=== PATIENT | male | born 1950 | race Caucasian/White ===

== ENCOUNTER → 2017-10-27 | Outpatient (CLI) | payer MEDICARE | END | disposition home or self-care (01) | LOC: RAH 12:39 | PROVIDERS: ATTEND Family Medicine | DX: K57.30 Diverticulosis of large intestine without perforation or abscess without bleeding (principal) | CPT/HCPCS: 74176 ==

== ENCOUNTER → 2018-08-21 | Outpatient (CLI) | payer MEDICARE, OTHER | END | disposition home or self-care (01) | LOC: RAH 13:17 | PROVIDERS: ATTEND Family Medicine | DX: R04.2 Hemoptysis (principal); M47.815 Spondylosis without myelopathy or radiculopathy, thoracolumbar region | CPT/HCPCS: 71250 ==

== ENCOUNTER → 2018-08-28 | Outpatient (CLI) | payer OTHER | END | disposition home or self-care (01) | LOC: RAH 10:25 | PROVIDERS: ATTEND Internal Medicine Gastroenterology | DX: N28.1 Cyst of kidney, acquired (principal); I70.0 Atherosclerosis of aorta | CPT/HCPCS: 76700 ==

== ENCOUNTER → 2019-04-16 | Outpatient (CLI) | payer OTHER ==
[~2019-04-16] MED LIST: IOHEXOL-350 75 ML VIAL IV ONE
== END | disposition home or self-care (01) ==
LOC: RAH 09:46
PROVIDERS: ATTEND Family Medicine
DX: R79.1 Abnormal coagulation profile (principal)
CPT/HCPCS: 71275; Q9967

== ENCOUNTER → 2019-05-11 | Outpatient (CLI) | payer OTHER | END | disposition home or self-care (01) | LOC: SHCH 15:31 | PROVIDERS: ATTEND Internal Medicine Cardiovascular Disease | DX: I35.0 Nonrheumatic aortic (valve) stenosis (principal); R00.2 Palpitations | CPT/HCPCS: 93306 ==

== ENCOUNTER → 2019-05-21 | Outpatient (CLI) | payer OTHER ==
[~2019-05-21] VITALS: Ht 177.8 cm; Wt 75.7 kg
[~2019-05-21] MED LIST changes: -IOHEXOL-350 75 ML VIAL IV ONE; +REGADENOSON 0.4 MG/5 ML PF SYG IVP SCH
== END | disposition home or self-care (01) ==
LOC: SHCH 08:52
PROVIDERS: ATTEND Internal Medicine Cardiovascular Disease
DX: R07.9 Chest pain, unspecified (principal); R00.1 Bradycardia, unspecified; R06.00 Dyspnea, unspecified
CPT/HCPCS: 78452; 93017; 96374; A9500 ×2; J2785

== ENCOUNTER 2019-06-13 09:05 | Observation (INO) | payer OTHER ==
[2019-06-11 09:15] LABS: BASOPHILS % (AUTO) 0.8 % (0.0-5.0); EOSINOPHILS % (AUTO) 4.2 % (0.0-8.0); HEMATOCRIT 42.9 % (42-54); LYMPHOCYTES % (AUTO) 16.8 % (21.0-51.0); MEAN CORPUSCULAR HEMOGLOBIN 29.9 pg (27.0-33.0); MEAN CORPUSCULAR HGB CONC 33.6 g/dL (32.0-36.0); MONOCYTES % (AUTO) 7.6 % (3.0-13.0); NEUTROPHILS % (AUTO) 70.1 % (40.0-77.0); PLATELET COUNT (AUTO) 369 K/uL (130-400); RED BLOOD CELL COUNT(AUTO) 4.82 MIL/uL (4.50-6.20); RED CELL DISTRIBUTION WIDTH 12.8 % (11.0-15.5); WHITE BLOOD COUNT (AUTO) 10.6 K/uL (4.8-10.8)
[2019-06-11 09:22] LABS: CREATININE 0.9 mg/dL (0.5-1.5)
[2019-06-11 09:25] LABS: INR 1.03 (0.85-1.15); PROTHROMBIN TIME 10.8 SEC (9.6-11.6)
[2019-06-11 09:29] VITALS: BP 134/66
--- NOTE | 2019-06-11 09:51 | NUR ---
CALLED [facility] SPOKE TO VALENCIA AND REPORTED THAT PT HAS NOT STARTED ELIQUIS SINCE PERSCRIBED. VALENCIA STATED SHE WILL MAKE A NOTE.
[2019-06-11 11:08] LABS: APPEARANCE,URINE Clear (CLEAR); BILIRUBIN,URINE Negative (NEGATIVE); COLOR,URINE Yellow (YELLOW); GLUCOSE, URINE (UA) Negative (NEGATIVE); KETONES,URINE Negative (NEGATIVE); LEUKOCYTE ESTERASE ,URINE Negative (NEGATIVE); NITRATE,URINE Negative (NEGATIVE); OCCULT BLOOD,URINE Trace (NEGATIVE); PROTEIN,URINE Negative (NEGATIVE); UROBILINOGEN,URINE 0.2 mg/dL (0.2-1.0)
[2019-06-11 11:27] LABS: BACTERIA,URINE Rare /HPF (None Seen); RBC,URINE 0-1 /HPF (0-1); SQUAMOUS EPITHELIAL CELL,UR Rare /HPF (0-2); WBC,URINE 0-1 /HPF (0-1)
--- NOTE | 2019-06-12 10:12 | NUR ---
Spoke to EVELIA Santiago and advised him that patient has not yet started Eliquis, okay to proceed. I also advised Carson Jackson pt pulse has been in the 40's and take metoprolol succ 100 mg at hs, Per Carson ALTAMIRANO medications will be evaluated day of procedure.
[2019-06-13] VITALS (9 sets, daily range): BP systolic 118–142; BP diastolic 72–82
[~2019-06-13] VITALS: Ht 175.3 cm; Wt 75.7 kg
[~2019-06-13 09:05] MED LIST changes: +AMLO5TAB5 PO; +METO-409 PO; -REGADENOSON 0.4 MG/5 ML PF SYG IVP SCH; +ROSU5TAB PO; +SODIUM CHLORIDE 0.9% 1000ML 1,000 ML IV SCH; +TAMS-1 PO
--- NOTE | 2019-06-13 09:45 | NUR ---
PROCEDURE PT HERE FOR PROCEDURE. DENIES ANY PAIN.
[2019-06-13] MEDS ORDERED: IOHEXOL-350 50ML VIAL IV ONE (10:12)
[2019-06-13] MEDS ORDERED: HEPARIN SODIUM 1000UNIT/ML 10ML VIAL ONE (10:12)
[2019-06-13] MEDS ORDERED: LIDOCAINE HCL 2% 20ML ONE (10:12)
[2019-06-13] MEDS ORDERED: IOHEXOL 350 MG/ML 100ML INFUS..BTL IV ONE (10:12)
--- NOTE | 2019-06-13 10:35 | NUR ---
PROCEDURE PT TAKEN TO PROCEDURE VIA BED BY PATIENT CARE MANAGER.
--- NOTE | 2019-06-13 12:05 | NUR ---
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 LYING FLAT. INSTRUCTED ON IMPORTANCE OF NOT LIFTING HEAD UP OFF BED AND MOVING RIGHT LEG. PT VERBALIZED UNDERSTANDING.
--- NOTE | 2019-06-13 13:15 | NUR ---
CONSULT CALLED DR. COLIN TO INFORM OF CONSULT. WILL PAGE HIM.
--- NOTE | 2019-06-13 13:30 | NUR ---
DR. BLANQUITA JUARES HERE TO EVALUATE PT.
--- NOTE | 2019-06-13 13:40 | NUR ---
REPORT REPORT GIVEN TO JERED STINSON. PT LYING IN BED. SITE TO RIGHT GROIN SOFT TO TOUCH. DSTAT IN PLACE. TRANSFERRED VIA BED.
--- NOTE | 2019-06-13 13:45 | NUR ---
ARRIVAL TO FLOOR PT IS AAOX3 DENIES CP DENIES SOB DENIES NV NO COMPLAINTS RESTING IN BED, ARRIVED VIA BED, BEDREST IN PROGRESS. GROIN SITE CLEAN DRY AND INTACT NO OOZING NO HEMATOMA NOTED. DENIES PAIN. CALL LIGHT WITHIN REACH.
--- NOTE | 2019-06-13 14:00 | NUR ---
DR COLIN MADE AWARE OF ARRIVAL TO FLOOR
--- NOTE | 2019-06-13 16:40 | NUR ---
PATIENT REQUESTING TO GO HOME PAGED DR DEVINE, AWAITING CALL BACK.
--- NOTE | 2019-06-13 17:01 | NUR ---
DR DEVINE CALLED BACK OK FOR PATIENT TO GO HOME 1 HR AFTER BEDREST IF GROIN REMAINS WNL. CONTINUE SAME HOME MEDS. FOLLOW UP WITH DR JUARES OUTPT.
--- NOTE | 2019-06-13 17:20 | NUR ---
DR COLIN MADE AWARE OF PT OK TO GO HOME BY DR DEVINE
--- NOTE | 2019-06-13 17:24 | NUR ---
DC PAPERWORK SIGNED PATIENT AGREES TO FOLLOW UP WITH DR JUARES AND DR DEVINE OUTPT. WAITING TO GO TILL 1 HR AFTER BEDREST.
--- NOTE | 2019-06-13 18:19 | NUR ---
PATIENT STATES HE WILL GO HOME NOW STATES HE ALREADY SIGNED HIS PAPERWORK AND ENOUGH IS ENOUGH. RIGHT GROIN NOTED TO BE WNL, PATIENT DENIES CP DENIES SOB DENIES NV NO COMPLAINTS. AGREES TO FOLLOW UP WITH DR DEVINE AND BLANQUITA OUTPT, AGREES TO TAKE SAME HOME MEDS ORDERED.
== END 2019-06-13 18:58 | disposition home or self-care (01) ==
LOC: DAH 09:05 → DAHIP 09:06 → DAH 09:06 → 2AH 14:18
PROVIDERS: ADMIT Internal Medicine; ATTEND Internal Medicine
DX: I25.119 Atherosclerotic heart disease of native coronary artery with unspecified angina pectoris (principal); I48.0 Paroxysmal atrial fibrillation; I10 Essential (primary) hypertension; N40.0 Benign prostatic hyperplasia without lower urinary tract symptoms; Z79.01 Long term (current) use of anticoagulants; Z79.899 Other long term (current) drug therapy
CPT/HCPCS: 36415; 71045; 80048; 81001; 85025; 85610; 85730; 93005; 93460; A4215; A4216; A4221; A4222; A4223 ×3; A4606; A4663; C1769; C1894 ×3; G0378 ×7; J1644; J3490; J7030; Q9965 ×2; Q9967

== ENCOUNTER → 2019-10-17 | Outpatient (CLI) | payer OTHER | END | disposition home or self-care (01) | LOC: SHCH 08:26 | PROVIDERS: ATTEND Internal Medicine Cardiovascular Disease | DX: I10 Essential (primary) hypertension (principal) ==

== ENCOUNTER → 2020-06-11 | Outpatient (CLI) | payer OTHER ==
[~2020-06-11] MED LIST changes: +AEC81 PO; -AMLO5TAB5 PO; +APIX5TAB PO; +CARV6.2579 PO; -METO-409 PO; -SODIUM CHLORIDE 0.9% 1000ML 1,000 ML IV SCH
== END | disposition home or self-care (01) ==
LOC: SHCH 15:54
PROVIDERS: ATTEND Internal Medicine Cardiovascular Disease
DX: I10 Essential (primary) hypertension (principal)
CPT/HCPCS: 93306; 93356

== ENCOUNTER → 2020-11-13 | Outpatient (CLI) | payer OTHER | END | disposition home or self-care (01) | LOC: RAH 09:07 | PROVIDERS: ATTEND Family Medicine | DX: R31.29 Other microscopic hematuria (principal); N28.1 Cyst of kidney, acquired | CPT/HCPCS: 76700; 76857 ==

== ENCOUNTER → 2021-08-13 | Outpatient (CLI) | payer OTHER | END | disposition home or self-care (01) | LOC: RAH 09:14 | PROVIDERS: ATTEND Family Medicine | DX: N28.1 Cyst of kidney, acquired (principal); I70.8 Atherosclerosis of other arteries; Z86.19 Personal history of other infectious and parasitic diseases | CPT/HCPCS: 76700 ==

== ENCOUNTER → 2021-11-06 | Outpatient (CLI) | payer OTHER | END | disposition home or self-care (01) | LOC: RAH 09:30 | PROVIDERS: ATTEND Internal Medicine Gastroenterology | DX: R10.11 Right upper quadrant pain (principal); R11.0 Nausea | CPT/HCPCS: 74240 ==

== ENCOUNTER → 2022-10-14 | Outpatient (CLI) | payer OTHER | END | disposition home or self-care (01) | LOC: SHCH 08:06 | PROVIDERS: ATTEND Internal Medicine Cardiovascular Disease | DX: I08.0 Rheumatic disorders of both mitral and aortic valves (principal) | CPT/HCPCS: 93306 ==

== ENCOUNTER → 2022-11-08 | Outpatient (CLI) | payer OTHER ==
[~2022-11-08] MED LIST changes: +REGADENOSON 0.4 MG/5 ML PF SYG IVP ONE
== END | disposition home or self-care (01) ==
LOC: SHCH 07:55
PROVIDERS: ATTEND Internal Medicine Cardiovascular Disease
DX: R94.39 Abnormal result of other cardiovascular function study (principal); R07.9 Chest pain, unspecified
CPT/HCPCS: 78452; 96374; 93017; J2785; A9500 ×2